=== PATIENT | female | born 1995 | race African-American/Black ===

== ENCOUNTER 2021-04-17 04:15 | Emergency (ER) | payer OTHER ==
[~2021-04-17] VITALS: Ht 167.6 cm; Wt 81.6 kg
[2021-04-17] MEDS ORDERED: MULT1TAB7 PO (04:23)
[2021-04-17] MEDS ORDERED: CELE50CA PO (04:23)
[2021-04-17 07:09] LABS: BASO # 0.1 10^3/uL (0.0-0.2); BASO % 0.6 % (0.0-1.0); EOS # 0.3 10^3/uL (0.0-0.5); HEMOGLOBIN 12.4 g/dl (12.0-15.5); LYMPH # 2.8 10^3/uL (1.5-5.0); LYMPH % 31.8 % (24.0-44.0); MEAN CORPUSCULAR HEMOGLOBIN 27.4 pg (27.0-33.0); MEAN CORPUSCULAR HGB CONC 32.6 g/dl (32.0-36.5); MEAN CORPUSCULAR VOLUME 83.9 fl (80.0-96.0); MONO # 0.6 10^3/uL (0.0-0.8); MONO % 6.4 % (2.0-8.0); NEUTROPHILS # 5.1 10^3/uL (1.5-8.5); PLATELET COUNT, AUTOMATED 203 10^3/uL (150-450); RED BLOOD COUNT 4.53 10^6/uL (4.00-5.40); WHITE BLOOD COUNT 8.7 10^3/uL (4.0-10.0)
[2021-04-17 07:32] LABS: CK-MB VALUE MASS < 1.0 NG/ML (<3.6); CPK CREATINE PHOSPHOKINASE 102 U/L (26-192); MB/CK RELATIVE INDEX 0.98 (< OR =4); TROPONIN I < 0.02 NG/ML (< 0.10)
[2021-04-17] MEDS ORDERED: KETOROLAC TROMETHAMINE 10 MG TAB PO ONE (09:00)
[2021-04-17 10:00] VITALS: BP 122/71
[2021-04-17] MEDS ORDERED: LIDO5DIS41 TOP (10:11)
== END 2021-04-17 10:36 | disposition home or self-care (01) ==
LOC: M ED 04:15
DX: M79.602 Pain in left arm (principal); R20.2 Paresthesia of skin

== ENCOUNTER → 2021-06-02 | Outpatient (REF) ==
[~2021-06-02] MED LIST: CELE50CA PO; LIDO5DIS41 TOP; MULT1TAB7 PO
--- NOTE | 2021-06-02 11:58 | REP ---
INDICATION: SOB COMPARISON: None. TECHNIQUE: PA and lateral. FINDINGS: The mediastinum and cardiac silhouette are normal. The lung [place] are clear and without acute consolidation, effusion, or pneumothorax. The skeletal structures are intact and normal. IMPRESSION: No acute cardiopulmonary process. <Electronically signed by Braxton Lin > 06/02/21 115
== END ==
LOC: M PLALAB 10:55
PROVIDERS: ATTEND Internal Medicine
DX: R06.02 Shortness of breath (principal)